=== PATIENT | female | born 1960 | race Caucasian/White ===

== ENCOUNTER 2017-02-01 07:16 | Inpatient (IN) | payer OTHER ==
[~2017-02-01] VITALS: Ht 149.9 cm; Wt 83.2 kg
[~2017-02-01 07:16] MED LIST: 0.9% SODIUM CHLORIDE 10 ML VIAL IVP ONE; BUPIVACAINE HCL/PF 0.5% 30 ML VIAL ONE; EPHEDrine SULFATE 50 MG/ML VIAL IM ONE; FentaNYL CITRATE-PF 100 MCG/2 ML VIAL IVP ONE; MIDAZOLAM HCL 2 MG/2 ML VIAL IVP ONE; RINGERS SOLUTION,LACTATED 1,000 ML IV ONE; SODIUM CHLORIDE 0.9% 10 ML ONE; SODIUM CHLORIDE 0.9% 100 ML ONE; SODIUM CL IRRIG SOLN BAG 3,000 ML IRRIG ONE
[2017-02-01] MEDS ORDERED: RINGERS SOLUTION,LACTATED 1,000 ML IV ONE ×2 (07:26→08:18)
[2017-02-01] MEDS ORDERED: IBUP-2070 PO (08:03)
[2017-02-01] MEDS ORDERED: SAXA2.5T PO (08:03)
[2017-02-01] MEDS ORDERED: EXEN2PEN SQ (08:03)
[2017-02-01] MEDS ORDERED: PRAV40 PO (08:03)
[2017-02-01] MEDS ORDERED: ASPI81 PO (08:03)
[2017-02-01] MEDS ORDERED: BENZ-26 PO (08:03)
[2017-02-01] MEDS ORDERED: INSLAN SQ (08:03)
[2017-02-01] MEDS ORDERED: CEPH500 PO (08:03)
[2017-02-01] MEDS ORDERED: INSNOV SQ (08:03)
[2017-02-01] MEDS ORDERED: MULT-71 PO (08:13)
[2017-02-01 08:22] LABS: GLUCOSE,POINT OF CARE 110 MG/DL (70-110)
[2017-02-01] MEDS ORDERED: TRANEXAMIC ACID 1,000 MG in DEXTROSE 5%-WATER 50 ML IV ONE (08:30)
[2017-02-01] MEDS ORDERED: PROMETHAZINE HCL 25 MG/ML VIAL IM PRN (08:30)
[2017-02-01] MEDS ORDERED: ZOLPIDEM TARTRATE 5 MG TABLET PO PRN (08:30)
[2017-02-01] MEDS ORDERED: ONDANSETRON HCL 4 MG/2 ML VIAL IVP PRN ×2 (08:30→09:30)
[2017-02-01] MEDS ORDERED: CELECOXIB 200 MG CAPSULE PO ONE (09:00)
[2017-02-01] MEDS ORDERED: CELECOXIB 200 MG CAPSULE ONE (09:02)
[2017-02-01] MEDS ORDERED: ACETAMINOPHEN 1000 MG/ISO-OSM 100 ML IV ONE (09:02)
[2017-02-01] MEDS: ACETAMINOPHEN 1000 MG/ISO-OSM 100 ML IV SCH ×3 (09:04→21:02)
[2017-02-01] MEDS ORDERED: MAG HYDROX/AL HYDROX/SIMETH 30 ML SUSP UDCUP PO PRN (09:30)
[2017-02-01] MEDS ORDERED: 0.9% SODIUM CHLORIDE 10 ML SYRINGE IVP PRN (09:30)
[2017-02-01] MEDS ORDERED: BISACODYL 10 MG RECTAL RECTAL SUPPOSITORY PR PRN (09:30)
[2017-02-01] MEDS ORDERED: [UNRECOGNIZED DRUG - OTHER] SQ SCH (09:30)
[2017-02-01] MEDS ORDERED: DiphenhydrAMINE HCL 50 MG/ML VIAL IVP PRN (09:30)
[2017-02-01] MEDS ORDERED: BENZOCAINE/MENTHOL LOZENGE [8 LOZENGES/PACKET] PO PRN (09:30)
[2017-02-01] MEDS: BACITRACIN 50,000 UNITS/VIAL ONE ×2 (10:13→10:22)
[2017-02-01] MEDS: BUPIVACAINE LIPOSOME/PF 1.3%-13.3MG/ML SUSPENSION 20 ML VIAL INJ ONE ×2 (10:23→11:15)
[2017-02-01] MEDS ORDERED: BUPIVACAINE LIPOSOME/PF 1.3%-13.3MG/ML SUSPENSION 20 ML VIAL INJ ONE (10:30)
[2017-02-01] MEDS ORDERED: SAXA5TAB PO (10:45)
[2017-02-01 13:48] VITALS: BP 124/64
[2017-02-01] MEDS: HYDROmorphone 2 MG/ML SYRINGE IVP PRN ×2 (14:15→18:20)
[2017-02-01] MEDS: INSULIN ASPART 100 UNITS/ML SQ SCH ×2 (14:16→18:30)
[2017-02-01 14:33] LABS: GLUCOSE COMMENT 1 Juice/Food/D50 Given; GLUCOSE,POINT OF CARE 59 MG/DL (70-110)
[2017-02-01 15:22] LABS: GLUCOSE,POINT OF CARE 90 MG/DL (70-110)
[2017-02-01 15:30] VITALS: BP 130/64
[2017-02-01] MEDS: CYCLOBENZAPRINE HCL 10 MG TABLET PO PRN (15:38)
[2017-02-01] MEDS: CeFAZolin 1 GM/DEXTROSE 50 ML IV SCH (18:20)
[2017-02-01 18:37] LABS: GLUCOSE COMMENT 1 Received Meds; GLUCOSE,POINT OF CARE 200 MG/DL (70-110)
[2017-02-01] MEDS: OXYGEN THERAPY IH SCH (20:00)
[2017-02-01 20:41] VITALS: BP 114/65
[2017-02-01] MEDS: DOCUSATE SODIUM 100 MG CAPSULE PO SCH (21:02)
[2017-02-01] MEDS: INSULIN GLARGINE,HUM.REC.ANLOG 100 UNITS/ML SQ SCH (21:56)
[2017-02-01] MEDS ORDERED: DEXTROSE 50%-WATER 25 GM/50 ML SYRINGE IVP PRN (22:00)
[2017-02-01] MEDS ORDERED: MAGNESIUM HYDROXIDE SUSPENSION 30 ML UDCUP PO PRN (22:00)
[2017-02-01] MEDS: SODIUM CHLORIDE 0.9% 1,000 ML IV SCH (22:01)
[2017-02-01 22:17] LABS: GLUCOSE,POINT OF CARE 229 MG/DL (70-110)
[2017-02-01 23:54] VITALS: BP 140/61
[2017-02-02] VITALS (7 sets, daily range): BP systolic 114–144; BP diastolic 55–96
[2017-02-02] MEDS: HYDROmorphone 2 MG/ML SYRINGE IVP PRN ×4 (02:15→19:57)
[2017-02-02] MEDS: CeFAZolin 1 GM/DEXTROSE 50 ML IV SCH (02:15)
[2017-02-02] MEDS: ACETAMINOPHEN 1000 MG/ISO-OSM 100 ML IV SCH (03:06)
[2017-02-02 06:17] LABS: ANION GAP 6 mmol/L (8-16); CALCIUM, TOTAL 7.8 mg/dL (8.8-10.5); CARBON DIOXIDE 28 mmol/L (22-29); CHLORIDE 103 mmol/L (98-107); CREATININE 0.72 mg/dL (0.60-1.30); GLOMERULAR FILTR. RATE CALC > 60 mL/min (>60); POTASSIUM 4.2 mmol/L (3.5-5.1); SODIUM SERUM 137 mmol/L (136-145); UREA NITROGEN, BLOOD 14 mg/dL (7-18)
[2017-02-02 06:20] LABS: BASOPHILS % (AUTO) 0.4 % (0.0-2.0); EOSINOPHILS % (AUTO) 1.2 % (1.0-6.0); HEMATOCRIT 33.7 % (36-46); HEMOGLOBIN 10.9 g/dL (12.0-16.0); LYMPHOCYTES # (AUTO) 2.4 K/uL (1.0-4.8); LYMPHOCYTES % (AUTO) 27.5 % (22.0-44.0); MEAN CORPUSCULAR HEMOGLOBIN 26.9 pg (26.0-34.0); MEAN CORPUSCULAR HGB CONC 32.4 G/dL (31.0-37.0); MEAN CORPUSCULAR VOLUME 83 fL (80-100); MONOCYTES # (AUTO) 0.9 K/uL (0.1-1.0); MONOCYTES % (AUTO) 10.7 % (2.0-9.0); NEUTROPHILS # (AUTO) 5.3 K/uL (1.8-7.7); NEUTROPHILS % (AUTO) 60.2 % (40.0-70.0); PLATELET COUNT (AUTO) 189 K/uL (150-450); RED BLOOD CELL COUNT(AUTO) 4.06 MIL/uL (4.00-5.20); RED CELL DISTRIBUTION WIDTH 12.9 % (11.5-14.5); WHITE BLOOD COUNT (AUTO) 8.7 K/uL (4.5-11.0)
[2017-02-02 06:27] LABS: GLUCOSE COMMENT 1 Received Meds; GLUCOSE,POINT OF CARE 157 MG/DL (70-110)
[2017-02-02] MEDS: INSULIN ASPART 100 UNITS/ML SQ PRN ×3 (06:42→21:49)
[2017-02-02] MEDS: OXYGEN THERAPY IH SCH ×2 (08:00→20:00)
[2017-02-02] MEDS ORDERED: DOCUSATE SODIUM 100 MG CAPSULE PO SCH (09:00)
[2017-02-02] MEDS ORDERED: [UNRECOGNIZED DRUG - OTHER] PO SCH (09:00)
[2017-02-02] MEDS: OxyCODONE HCL/ACETAMINOPHEN 10-325 MG TABLET PO PRN ×3 (09:14→17:26)
[2017-02-02] MEDS: DOCUSATE SODIUM 100 MG CAPSULE PO SCH ×2 (09:14→21:38)
[2017-02-02] MEDS: CYCLOBENZAPRINE HCL 10 MG TABLET PO PRN ×2 (09:14→17:26)
[2017-02-02] MEDS: PRAVASTATIN SODIUM 40 MG TABLET PO SCH (09:15)
[2017-02-02] MEDS: PANTOPRAZOLE SODIUM 40 MG DR TABLET PO SCH (09:15)
[2017-02-02] MEDS: RIVAROXABAN 10 MG TABLET PO SCH ×2 (10:00→17:26)
[2017-02-02] MEDS ORDERED: ACETAMINOPHEN 325 MG TABLET PO PRN (12:00)
[2017-02-02 14:26] LABS: GLUCOSE,POINT OF CARE 110 MG/DL (70-110)
[2017-02-02] MEDS ORDERED: OxyCODONE HCL/ACETAMINOPHEN 10-325 MG TABLET PO PRN (15:00)
[2017-02-02 17:51] LABS: GLUCOSE,POINT OF CARE 211 MG/DL (70-110)
[2017-02-02] MEDS: SODIUM CHLORIDE 0.9% 1,000 ML IV SCH (21:04)
[2017-02-02] MEDS: INSULIN GLARGINE,HUM.REC.ANLOG 100 UNITS/ML SQ SCH (21:41)
[2017-02-02 22:02] LABS: GLUCOSE,POINT OF CARE 202 MG/DL (70-110)
[2017-02-03 00:14] VITALS: BP 148/73
[2017-02-03] MEDS: SODIUM CHLORIDE 0.9% 1,000 ML IV SCH (01:43)
[2017-02-03] MEDS: HYDROmorphone 2 MG/ML SYRINGE IVP PRN (03:11)
[2017-02-03 05:52] VITALS: BP 135/70
[2017-02-03] MEDS: OxyCODONE HCL/ACETAMINOPHEN 10-325 MG TABLET PO PRN ×3 (06:01→15:25)
[2017-02-03 06:02] LABS: GLUCOSE,POINT OF CARE 196 MG/DL (70-110)
[2017-02-03 06:04] LABS: BASOPHILS % (AUTO) 0.3 % (0.0-2.0); EOSINOPHILS % (AUTO) 1.5 % (1.0-6.0); HEMATOCRIT 35.2 % (36-46); HEMOGLOBIN 11.2 g/dL (12.0-16.0); LYMPHOCYTES # (AUTO) 2.7 K/uL (1.0-4.8); LYMPHOCYTES % (AUTO) 24.7 % (22.0-44.0); MEAN CORPUSCULAR HEMOGLOBIN 26.6 pg (26.0-34.0); MEAN CORPUSCULAR HGB CONC 31.9 G/dL (31.0-37.0); MEAN CORPUSCULAR VOLUME 84 fL (80-100); MONOCYTES # (AUTO) 1.2 K/uL (0.1-1.0); MONOCYTES % (AUTO) 10.8 % (2.0-9.0); NEUTROPHILS # (AUTO) 6.9 K/uL (1.8-7.7); NEUTROPHILS % (AUTO) 62.7 % (40.0-70.0); PLATELET COUNT (AUTO) 197 K/uL (150-450); RED BLOOD CELL COUNT(AUTO) 4.21 MIL/uL (4.00-5.20)
[2017-02-03] MEDS: INSULIN ASPART 100 UNITS/ML SQ PRN ×2 (06:15→12:38)
[2017-02-03 08:00] VITALS: BP 141/71
[2017-02-03] MEDS: OXYGEN THERAPY IH SCH (08:00)
[2017-02-03] MEDS: PANTOPRAZOLE SODIUM 40 MG DR TABLET PO SCH (08:37)
[2017-02-03] MEDS: PRAVASTATIN SODIUM 40 MG TABLET PO SCH (08:38)
[2017-02-03] MEDS: CYCLOBENZAPRINE HCL 10 MG TABLET PO PRN (08:38)
[2017-02-03] MEDS: DOCUSATE SODIUM 100 MG CAPSULE PO SCH (08:39)
[2017-02-03 11:44] VITALS: BP 142/71
[2017-02-03 13:02] LABS: GLUCOSE,POINT OF CARE 282 MG/DL (70-110)
[2017-02-03 15:45] VITALS: BP 135/83
== END 2017-02-03 16:08 | DRG 302 ==
LOC: 4E 07:16
PROVIDERS: ADMIT Orthopaedic Surgery; ATTEND Orthopaedic Surgery
PROC: 0SRC0J9 Replacement of Right Knee Joint with Synthetic Substitute, Cemented, Open Approach (ICD-10-PCS; principal; 2017-02-01 10:13)
DX: M17.11 Unilateral primary osteoarthritis, right knee (principal); E11.9 Type 2 diabetes mellitus without complications; E66.9 Obesity, unspecified; Z79.4 Long term (current) use of insulin; Z79.899 Other long term (current) drug therapy; Z82.49 Family history of ischemic heart disease and other diseases of the circulatory system; Z83.3 Family history of diabetes mellitus; Z68.37 Body mass index [BMI] 37.0-37.9, adult; Z98.891 History of uterine scar from previous surgery; Z79.82 Long term (current) use of aspirin
CPT/HCPCS: 82962; 87081; 88300; 97110; 97116; 97161; 97166; 97530; 97535; C9290; G0238; J0131; J0690; J1170; J1815; J2250; J2405; J3010; J3490; J7030; J7050; J7060; J7120